=== PATIENT | female | born 1985 | race Hispanic/Latino ===

== ENCOUNTER 2018-08-19 16:14 | Emergency (ER) | payer SELFPAY ==
[2018-08-19 17:08] LABS: Absolute Lymphocytes (CBC) 2.6 K/uL (0.7-4.9); Basophils % 0.3 % (0-1.3); Eosinophils % 0.8 % (0-4.4); Hematocrit 43.5 % (36.0-45.0); Lymphocytes % 29.8 % (15.3-44.8); MPV 8.8 fL (7.6-11.3); Monocytes % 7.1 % (3.3-12.3); RBC Red Blood Cell Count 5.13 M/uL (3.86-4.86)
[2018-08-19 17:12] LABS: Protime INR 0.99
[2018-08-19 17:15] LABS: ALT/SGPT 28 U/L (12-78); AST/SGOT 16 U/L (15-37); Albumin 4.1 g/dL (3.4-5.0); Alkaline Phosphatase 68 U/L (45-117); BUN Blood Urea Nitrogen 12 mg/dL (7-18); Bicarbonate 26 mmol/L (21-32); Bilirubin Direct 0.1 mg/dL (0-0.2); Bilirubin Total 0.3 mg/dL (0.2-1.0); Glucose Level 100 mg/dL (74-106); NT PRO-BNP 17 pg/mL (<125); Protein, Total 8.1 g/dL (6.4-8.2); Sodium Level 140 mmol/L (136-145); Troponin (Emerg Dept Use Only) < 0.02 ng/mL (0.0-0.045)
--- NOTE | 2018-08-19 17:19 | RAD REPORT ---
EXAM DESCRIPTION: RAD - Chest Single View - 08/19/2018 5:01 pm CLINICAL HISTORY: chest pain, shortness of breath Chest pain. COMPARISON: <Comparisons> FINDINGS: Portable technique limits examination quality. The lungs are grossly clear. The heart is normal in size. No displaced fractures. IMPRESSION: No acute intrathoracic process suspected.
--- NOTE | 2018-08-19 18:08 | RAD REPORT ---
EXAM DESCRIPTION: CT - Chest For Pe Angio - 08/19/2018 5:43 pm CLINICAL HISTORY: Chest pain. chest pain, shortness of breath COMPARISON: No comparisons TECHNIQUE: CT angiogram of the pulmonary arteries was performed with MIP. All CT scans are performed using dose optimization technique as appropriate and may include automated exposure control or mA/KV adjustment according to patient size. FINDINGS: No evidence of pulmonary thromboembolism. No acute aortic finding demonstrated. The lungs are clear. No significant pericardial or pleural fluid. No concerning bony finding. IMPRESSION: No evidence of pulmonary thromboembolism. No acute lung findings.
[2018-08-19] MEDS ORDERED: LORazepam 2 MG/ML VIAL ONE (18:40)
--- NOTE | 2018-08-19 19:14 | EDPHYS ---
Physician Documentation [facility] Name: Haylee Salcedo Age: 32 yrs Sex: Female : 1985 Arrival Date: 08/19/2018 Time: 16:15 Bed 19 Private MD: ED Physician Tien Hoffman HPI: 08/19 16:29 This 32 yrs old Female presents to ER via Ambulatory with complaints of jmm Numbness Of Hand. 16:29 The patient or guardian reports chest pain that is located primarily in the substernal jmm area. The pain does not radiate. Associated signs and symptoms: Pertinent positives: shortness of breath. 16:29 The chest pain is described as sharp. Duration: The patient or guardian reports a jmm single episode, that is still ongoing. Modifying factors: The symptoms are alleviated by nothing. the symptoms are aggravated by nothing. This is a 32 year old female with a history of anemia that presents to the ED with complaints of tingling and numbness to both hand while drive. Patient states she then developed chest pain and shortness of breath. . Historical: - Allergies: 16:42 No Known Allergies; iw - Home Meds: 16:42 Iron CR Oral daily [Active]; iw - PMHx: 16:42 Anemia; iw - PSHx: 16:42 None; iw - Immunization history:: Adult Immunizations up to date. - Social history:: Smoking status: Patient/guardian denies using tobacco. - Ebola Screening: : Patient negative for fever greater than or equal to 101.5 degrees Fahrenheit, and additional compatible Ebola Virus Disease symptoms Patient denies exposure to infectious person Patient denies travel to an Ebola-affected area in the 21 days before illness onset No symptoms or risks identified at this time. ROS: 16:29 Constitutional: Negative for fever, chills, and weight loss. jmm 16:29 Cardiovascular: Positive for chest pain. 16:29 Respiratory: Positive for shortness of breath. 16:29 MS/extremity: Positive for paresthesias. 16:29 All other systems are negative. Exam: 16:29 Head/Face: atraumatic. Eyes: EOMI, no conjunctival erythema appreciated ENT: Moist jmm Mucus Membranes 16:29 Neck: Trachea midline, Supple Chest/axilla: Normal chest wall appearance and motion. 16:29 Abdomen/GI: Non distended, soft Back: Normal ROM Skin: General appearance color normal MS/ Extremity: Moves all extremities, no obvious deformities appreciated, no edema noted to the lower extremities Neuro: Awake and alert, normal gait 16:29 Constitutional: The patient appears alert, awake, anxious. 16:29 Cardiovascular: Rate: tachycardic. 16:29 Respiratory: the patient does not display signs of respiratory distress, Respirations: normal, Breath sounds: are clear throughout. 16:29 Psych: Behavior/mood is cooperative, anxious. Vital Signs: 16:35 BP 129 / 83; Pulse 134; Resp 20 S; Pulse Ox 100% on R/A; iw 16:50 BP 133 / 84; Pulse 127; Resp 16; Pulse Ox 99% on R/A; la1 17:29 BP 124 / 79; Pulse 123; Resp 16; Pulse Ox 99% on R/A; tr5 18:14 BP 116 / 89; Pulse 115; Resp 17; Temp 98.8(TE); Pulse Ox 98% ; mh5 19:56 BP 112 / 63; Pulse 104; Resp 20; Temp 98.8; Pulse Ox 99% ; eb1 MDM: 16:26 Patient medically screened. [facility] 19:10 Data reviewed: vital signs, nurses notes. Counseling: I had a detailed discussion with nirmal the patient and/or guardian regarding: the historical points, exam findings, and any diagnostic results supporting the discharge/admit diagnosis, lab results, radiology results, the need for outpatient follow up, to return to the emergency department if symptoms worsen or persist or if there are any questions or concerns that arise at home. ED course: Symptoms al;alleviated in the ED. Pulse reduced in the ED. Patient has no chest pain or shortness of breath on discharge. CTA negative. Patient is advised to follow up with pcp and otherwise given strict return precautions. Patient understood and agrees with the plan of care. . 08/19 16:29 Order name: Basic Metabolic Panel [facility] 08/19 16:29 Order name: CBC with Diff [facility] 08/19 16:29 Order name: LFT's [facility] 08/19 16:29 Order name: Magnesium [facility] 08/19 16:29 Order name: NT PRO-BNP [facility] 08/19 16:29 Order name: PT-INR; Complete Time: 17:22 [facility] 08/19 16:29 Order name: Troponin (emerg Dept Use Only); Complete Time: 17:22 [facility] 08/19 16:29 Order name: D-Dimer; Complete Time: 17:22 [facility] 08/19 16:29 Order name: Basic Metabolic Panel; Complete Time: 17:22 [facility] 08/19 16:30 Order name: CBC with Automated Diff [facility] 08/19 16:30 Order name: Liver (Hepatic) Function; Complete Time: 17:22 [facility] 08/19 16:30 Order name: Magnesium; Complete Time: 17:22 [facility] 08/19 16:30 Order name: NT PRO-BNP; Complete Time: 17:22 [facility] 08/19 17:06 Order name: Urine Dipstick--Ancillary (enter results) 08/19 16:29 Order name: XRAY Chest (1 view); Complete Time: 17:22 [facility] 08/19 16:29 Order name: EKG; Complete Time: 16:33 [facility] 08/19 16:29 Order name: Cardiac monitoring; Complete Time: 16:44 [facility] 08/19 16:29 Order name: EKG - Nurse/Tech; Complete Time: 16:44 [facility] 08/19 16:29 Order name: IV Saline Lock; Complete Time: 16:44 [facility] 08/19 16:29 Order name: Labs collected and sent; Complete Time: 16:51 [facility] 08/19 16:29 Order name: O2 Per Protocol; Complete Time: 16:51 [facility] 08/19 16:29 Order name: O2 Sat Monitoring; Complete Time: 16:44 [facility] 08/19 16:45 Order name: CT Chest For PE Angio; Complete Time: 18:09 [facility] 08/19 16:55 Order name: Urine Dipstick-Ancillary (obtain specimen); Complete Time: 17:12 [facility] 08/19 16:55 Order name: Urine Test (obtain specimen); Complete Time: 17:12 [facility] 08/19 17:06 Order name: Urine --Ancillary (enter results) 08/19 17:09 Order name: CBC Smear Scan [facility] Administered Medications: 18:29 Drug: Ativan 1 mg Route: IVP; Site: right antecubital; tr5 18:41 Follow up: Response: No adverse reaction; Anxiety decreased tr5 Disposition: 08/20 07:21 Co-signature as Attending Physician, Tien Hoffman MD. rn Disposition: 08/19/18 19:13 Discharged to Home. Impression: Chest pain, unspecified, Shortness of breath. - Condition is Stable. - Discharge Instructions: Nonspecific Chest Pain, Shortness of Breath. - Medication Reconciliation Form, Thank You Letter, Antibiotic Education, Prescription Opioid Use form. - Follow up: Private Physician; When: 2 - 3 days; Reason: Recheck today's complaints, Continuance of care, Re-evaluation by your physician. Signatures: Dispatcher [employer] EDMS Gonzalo Son PA PA jmm Williams, Irene, RN RN Tien Kidd MD MD rn Basinger, Emily, RN RN eb1 Med Dumont RN RN tr5 Corrections: (The following items were deleted from the chart) 08/19 19:59 19:13 08/19/2018 19:13 Discharged to Home. Impression: Chest pain, unspecified; eb1 Shortness of breath. Condition is Stable. Forms are Medication Reconciliation Form, Thank You Letter, Antibiotic Education, Prescription Opioid Use. Follow up: Private Physician; When: 2 - 3 days; Reason: Recheck today's complaints, Continuance of care, Re-evaluation by your physician. nirmal
--- NOTE | 2018-08-19 19:14 | ER ---
Nurse's Notes [facility] Name: Haylee Salcedo Age: 32 yrs Sex: Female : 1985 Arrival Date: 08/19/2018 Time: 16:15 Bed 19 Private MD: Diagnosis: Chest pain, unspecified;Shortness of breath Presentation: 08/19 16:29 Presenting complaint: Patient states: was driving in her car, all of a sudden started iw feeling bad, got short of breath, mild chest pain, started hyperventilating, hands went numb and tingling, started about 10 minutes [employer] WORK[employer], [id number] upon arrival to ER, pt states she felt like she maybe had a panic attack but has never had one before. Transition of care: patient was not received from another setting of care. Onset of symptoms was August 19, 2018. Risk Assessment: Do you want to hurt yourself or someone else? Patient reports no desire to harm self or others. Initial Sepsis Screen: Does the patient meet any 2 criteria? No. Patient's initial sepsis screen is negative. Does the patient have a suspected source of infection? No. Patient's initial sepsis screen is negative. Care prior to arrival: None. 16:29 Method Of Arrival: Ambulatory iw 16:29 Acuity: NACHO 2 iw Historical: - Allergies: 16:42 No Known Allergies; iw - Home Meds: 16:42 Iron CR Oral daily [Active]; iw - PMHx: 16:42 Anemia; iw - PSHx: 16:42 None; iw - Immunization history:: Adult Immunizations up to date. - Social history:: Smoking status: Patient/guardian denies using tobacco. - Ebola Screening: : Patient negative for fever greater than or equal to 101.5 degrees Fahrenheit, and additional compatible Ebola Virus Disease symptoms Patient denies exposure to infectious person Patient denies travel to an Ebola-affected area in the 21 days before illness onset No symptoms or risks identified at this time. Screenin:40 Abuse screen: Denies threats or abuse. Nutritional screening: No deficits noted. la1 Tuberculosis screening: No symptoms or risk factors identified. Fall Risk No fall in past 12 months (0 pts). No secondary diagnosis (0 pts). IV access (20 points). Ambulatory Aid- None/Bed Rest/Nurse Assist (0 pts). Gait- Normal/Bed Rest/Wheelchair (0 pts) Mental Status- Oriented to own ability (0 pts). Total Patel Fall Scale indicates No Risk (0-24 pts). Assessment: 16:40 General: Appears uncomfortable, Behavior is calm, cooperative. Pain: Complains of pain la1 in anterior aspect of left upper chest and left breast Pain currently is 8 out of 10 on a pain scale. Quality of pain is described as aching, heavy. Neuro: Level of Consciousness is awake, alert, Oriented to person, place, time, Varnish Thinner are equal bilaterally Moves all extremities. Cardiovascular: Reports chest pain, shortness of breath, Heart tones present Bruits absent Capillary refill < 3 seconds Pulses are all present. Edema is absent. Respiratory: Reports shortness of breath at rest Airway is patent Trachea midline Respiratory effort is even, Respiratory pattern is symmetrical, GI: No signs and/or symptoms were reported involving the gastrointestinal system. : No signs and/or symptoms were reported regarding the genitourinary system. EENT: No signs and/or symptoms were reported regarding the EENT system. Derm: Skin is intact, Skin is dry, Skin is pink, warm \T\ dry. Skin temperature is warm. Musculoskeletal: Capillary refill < 3 seconds, Range of motion: intact in all extremities. 17:29 Reassessment: Patient and/or family updated on plan of care and expected duration. Pain tr5 level reassessed. Patient is alert, oriented x 3, equal unlabored respirations, skin warm/dry/pink. 18:30 Reassessment: Patient and/or family updated on plan of care and expected duration. Pain tr5 level reassessed. Patient is alert, oriented x 3, equal unlabored respirations, skin warm/dry/pink. Patient states feeling better. Vital Signs: 16:35 BP 129 / 83; Pulse 134; Resp 20 S; Pulse Ox 100% on R/A; iw 16:50 BP 133 / 84; Pulse 127; Resp 16; Pulse Ox 99% on R/A; la1 17:29 BP 124 / 79; Pulse 123; Resp 16; Pulse Ox 99% on R/A; tr5 18:14 BP 116 / 89; Pulse 115; Resp 17; Temp 98.8(TE); Pulse Ox 98% ; mh5 19:56 BP 112 / 63; Pulse 104; Resp 20; Temp 98.8; Pulse Ox 99% ; eb1 ED Course: 16:15 Patient arrived in ED. as 16:18 Gonzalo Son PA is PHCP. m 16:18 Tien Hoffman MD is Attending Physician. jmm 16:41 Triage completed. iw 16:43 Nils Daigle, RN is Primary Nurse. la1 16:43 Arm band placed on. iw 16:45 Inserted saline lock: 20 gauge in right antecubital area, using aseptic technique. la1 16:50 Patient has correct armband on for positive identification. Placed in gown. Bed in low la1 position. Call light in reach. 16:52 Radiology exam delayed due to lab results not completed at this time. (BUN/Creatinine) mw3 test not completed at this time. 17:02 XRAY Chest (1 view) In Process Unspecified. EDMS 17:12 Urine --Ancillary (enter results) Sent. mh5 17:12 CBC Smear Scan Sent. 5 17:12 Urine Dipstick--Ancillary (enter results) Sent. 5 17:12 NT PRO-BNP Sent. 5 17:12 Magnesium Sent. 5 17:13 Liver (Hepatic) Function Sent. 5 17:13 CBC with Automated Diff Sent. mh5 17:13 Basic Metabolic Panel Sent. 5 17:13 D-Dimer Sent. 5 17:13 PT-INR Sent. 5 17:13 Troponin (emerg Dept Use Only) Sent. mh5 17:13 Magnesium Sent. mh5 17:13 NT PRO-BNP Sent. 5 17:13 Basic Metabolic Panel Sent. 5 17:13 CBC with Diff Sent. 5 17:13 LFT's Sent. 5 17:14 Warm blanket given. playground monitor on. Pulse ox on. NIBP on. mh5 17:14 Initial lab(s) drawn, by ED staff, sent to lab. 5 17:14 Urine collected: clean catch specimen, clear. mh5 17:[address] via stretcher. tr5 17:43 CT Chest For PE Angio In Process Unspecified. EDMS 17:43 CT completed. Patient tolerated procedure well. Patient moved to CT. mw3 19:55 No provider procedures requiring assistance completed. IV discontinued, intact, eb1 bleeding controlled, No redness/swelling at site. Administered Medications: 18:29 Drug: Ativan 1 mg Route: IVP; Site: right antecubital; tr5 18:41 Follow up: Response: No adverse reaction; Anxiety decreased tr5 Outcome: 19:13 Discharge ordered by . nirmal 19:57 Condition: improved eb1 19:57 Discharge instructions given to patient, Instructed on discharge instructions, follow up and referral plans. Demonstrated understanding of instructions, follow-up care. 19:57 Discharged to home ambulatory, with family. eb1 19:59 Patient left the ED. eb1 Signatures: Dispatcher [employer] EDMS Gonzalo Son PA PA jmm Martinez, Amelia as Williams, Irene, RN RN iw Nils Daigle RN RN txEdita Jasmine 5 Mavis Ronquillo RN RN eb1 Arianne Goodwin 3 Med Dumont RN RN tr5 Corrections: (The following items were deleted from the chart) 16:42 16:29 Acuity: NACHO 3 iw iw 16:43 16:42 BP 129 / 83; Pulse 134bpm; Resp 20bpm; Spontaneous; Pulse Ox 100% RA; iw iw 17:32 17:30 Patient moved to [place] via wheelchair. tr5 tr5
[2018-08-19 21:43] LABS: Urine White Blood Cell Casts OK
[2018-08-19 21:44] LABS: Anisocytosis 2+; Blood Morphology Comment NOTED (NOT SEEN); Platelet Estimate ADEQ
[2018-08-19 22:07] LABS: Urine Blood TRACE (NEG); Urine Glucose NEGATIVE (NEG); Urine Protein NEGATIVE (NEG)
--- NOTE | 2018-08-19 22:15 | EKG ---
Test Date: 2018-08-19 Test Time: 16:38:08 Care Mgr: MIRYAM MEASUREMENT RESULTS: Intervals: Rate: 130 TN: 146 QRSD: 76 QT: 266 QTc: 391 [place]: P: 78 TN: 146 QRS: 59 T: -22 INTERPRETIVE STATEMENTS: Sinus tachycardia Possible Left atrial enlargement Nonspecific ST and T wave abnormality Abnormal ECG No previous ECG available for comparison Electronically Signed On 08-19-18 22:14:55 CDT by Tylor Campbell
== END 2018-08-19 19:59 | disposition home or self-care (01) ==
LOC: ER 16:14
DX: R06.02 Shortness of breath (principal); D64.9 Anemia, unspecified
CPT/HCPCS: 36415; 71045; 71275; 80048; 80076; 81003; 81025; 83735; 83880; 84484; 85025; 85379; 85610; 93005; 96374; 99285; Q9967